=== PATIENT | female | born 1995 | race Caucasian/White ===

== ENCOUNTER 2022-03-07 06:12 | Inpatient (IN) ==
[2022-03-07] MEDS: D5 1/2 NS 1,000 ML 1,000 ML IV SCH ×2 (06:45→18:47)
[2022-03-07] MEDS ORDERED: MORPHINE SULFATE INJ 2 MG INJ IVP PRN (07:17)
[2022-03-07] MEDS ORDERED: REGLAN INJ 10 MG VIAL IVP PRN (07:17)
[2022-03-07] MEDS ORDERED: AMPICILLIN VIAL 2 GRAM 2 G in NS 100 ML IV + SPIKE MINIBAG* 100 ML IV SCH (07:17)
[2022-03-07] MEDS ORDERED: D5 LR + PITOCIN 10 UNITS/L 10 UNITS/1,000 ML BAG IV PRN (07:17)
[2022-03-07] MEDS ORDERED: PITOCIN IVP ONE (07:17)
[2022-03-07] MEDS ORDERED: NUBAIN INJ 20 MG AMP IVP PRN (07:17)
[2022-03-07] MEDS ORDERED: STADOL INJ IVP PRN (07:17)
[2022-03-07] MEDS ORDERED: PHENERGAN INJ 25 MG IM PRN ×2 (07:17→18:23)
--- NOTE | 2022-03-07 07:17 | DR.OB ---
OB Quick Note - Assessment/Plan Assessment/Plan: L&D 03/07/22 at 6:50am S-No complaint. O-Afebrile,VSS VFO=254 with good LTV, +accel, no decel. CTX=none CVX=1cm/50%/-1/VTX AROM with light meconium. IUPC and FSE placed. A-IUP at 38 6/7 weeks for induction +GBS P-Begin pitocin induction IV ABX in labor for +GBS Anticipate
[2022-03-07] MEDS ORDERED: D5 1/2 NS 1,000 ML 1,000 ML IV ONE (07:28)
[2022-03-07] MEDS ORDERED: D5 1/2 NS 1,000 mL + PITOCIN 20 UNITS/L IV 20 UNITS/1,000 ML BAG IV ONE (07:28)
[2022-03-07] MEDS ORDERED: PITOCIN ONE (07:28)
[2022-03-07] MEDS ORDERED: BETADINE SOLN ONE (07:28)
[2022-03-07] MEDS ORDERED: D5 LR + PITOCIN 10 UNITS/L 10 UNITS/1,000 ML BAG IV ONE (07:28)
[2022-03-07] MEDS ORDERED: AMPICILLIN VIAL 2 GRAM ONE (07:29)
[2022-03-07] MEDS ORDERED: NS 100 ML IV 100 ML ONE ×3 (07:29→13:43)
[2022-03-07] MEDS ORDERED: AMPICILLIN VIAL 1 GRAM ONE ×2 (07:29→13:43)
[2022-03-07] MEDS: VSL#3 PO SCH ×2 (07:40→09:28)
[2022-03-07] MEDS: AMPICILLIN VIAL 1 GRAM 1 G in NS 50 ML IV + SPIKE MINIBAG* 50 ML IV SCH (08:46)
[2022-03-07] MEDS ORDERED: AMPICILLIN VIAL 1 GRAM 1 G in NS 50 ML IV + SPIKE MINIBAG* 50 ML IV SCH (10:13)
[2022-03-07] MEDS: AMPICILLIN VIAL 1 GRAM 1 G in NS 100 ML IV 100 ML IV SCH ×4 (10:15→18:47)
[2022-03-07] MEDS ORDERED: STADOL INJ ONE (10:21)
[2022-03-07] MEDS ORDERED: FENTANYL VIAL INJ 100 mcg ONE (10:35)
[2022-03-07] MEDS ORDERED: LR 1,000 ML IV 1,000 ML IV ONE (10:35)
[2022-03-07] MEDS ORDERED: NAROPIN EPIDURAL 0.2% 100 ML ONE (10:35)
--- NOTE | 2022-03-07 12:04 | DR.OB ---
OB Quick Note - Assessment/Plan Assessment/Plan: L&D 03/07/22 at 11:55am Pitocin=18mu/min. Ampicillin S-No complaint. s/p epidural. O-Afebrile,VSS ODE=778 with good LTV, +accel, no decel. CTX=q 1 1/2 to 2 min., about 45-55mmHg CVX=3cm/75%/-1 A-IUP at 38 6/7 weeks for induction +GBS P-Cont. pitocin induction and IV ABX in labor Anticipate
--- NOTE | 2022-03-07 16:55 | DR.OB ---
OB Quick Note - Assessment/Plan Assessment/Plan: L&D 03/07/22 at 4:50pm Pitocin=20mu/min. Ampicillin S-No complaint. O-Afebrile,VSS FDD=480 with good LTV, +accel, no decel. CTX=q 1 1/2 to 2 min., about 55-65mmHg CVX=8cm/100%/0 A-IUP at 38 6/7 weeks for induction +GBS P-Cont. pitocin induction Cont. IV ABX in labor Anticipate
--- NOTE | 2022-03-07 18:22 | DR.OB ---
OB Quick Note - Assessment/Plan Assessment/Plan: Delivery Note GERIATRIC NURSING ASSISTANT 03/07/22 at 18:03 Patient complete and pushing. Head delivered over intact perineum. Nose and mouth bulb suctioned. Nuchal cord x 1 reduced. Compound presentation with left hand to head noted. Body delivered over intact perineum. Cord clamped x 2 and cut. Infant handed to attendant. Cord sent for gases. Placenta delivered spontaneously / intact / 3 vessel cord. No CVX tears. A small midline second degree tear noted and repaired with 0-vicryl in usual fashion. Viable male delivered by , VTX/OA with compound presentation, wt=8'7" and 9/9, stable to NBN. Mother stable to RR. EIC=[id number].
[2022-03-07] MEDS: D5 1/2 NS 1,000 ML 1,000 ML with PITOCIN 20 UNITS IV SCH ×2 (18:47)
[2022-03-07] MEDS ORDERED: MILK OF MAGNESIA PO PRN (19:07)
[2022-03-07] MEDS ORDERED: DERMOPLAST PAIN RELIEF SPRAY TOP PRN (19:07)
[2022-03-07] MEDS ORDERED: AMBIEN PO PRN (19:07)
[2022-03-07] MEDS ORDERED: ADACEL or BOOSTRIX TDaP VACCINE IM ONE (19:07)
[2022-03-08] MEDS: MOTRIN TAB 800 MG PO PRN ×2 (01:01→14:30)
[2022-03-08] MEDS: D5 1/2 NS 1,000 ML 1,000 ML with PITOCIN 20 UNITS IV SCH ×2 (03:38)
[2022-03-08 04:56] LABS: HEMATOCRIT 28.1 % (36.0-47.0)
[2022-03-08 05:11] LABS: HEMOGLOBIN 9.5 g/dL (12.0-16.0)
[2022-03-08] MEDS: PRENATAL PLUS PO SCH (09:10)
[2022-03-08] MEDS: VSL#3 PO SCH (09:11)
[2022-03-08] MEDS: PROTONIX TAB 40 MG PO SCH (09:11)
[2022-03-08] MEDS: ZOLOFT PO SCH (09:11)
[2022-03-08] MEDS ORDERED: ADACEL or BOOSTRIX TDaP VACCINE IM ONE (20:10)
[2022-03-09] MEDS: MOTRIN TAB 800 MG PO PRN (00:15)
[2022-03-09 08:17] VITALS: BP 106/62
[2022-03-09] MEDS: VSL#3 PO SCH (08:52)
[2022-03-09] MEDS: ZOLOFT PO SCH (08:52)
[2022-03-09] MEDS: PROTONIX TAB 40 MG PO SCH (08:52)
[2022-03-09] MEDS: PRENATAL PLUS PO SCH (08:52)
== END 2022-03-09 10:30 | disposition home or self-care (01) | DRG 807 ==
LOC: LD 06:12 → MED/SURG 19:11
PROVIDERS: ADMIT Specialist; ATTEND Specialist
DX: O70.1 Second degree perineal laceration during delivery; B95.1 Streptococcus, group B, as the cause of diseases classified elsewhere; Z37.0 Single live birth; Z3A.38 38 weeks gestation of pregnancy; O98.82 Other maternal infectious and parasitic diseases complicating childbirth; O99.613 Diseases of the digestive system complicating pregnancy, third trimester; O99.343 Other mental disorders complicating pregnancy, third trimester